=== PATIENT | female | born 1955 | race Caucasian/White ===

== ENCOUNTER 2018-02-07 15:58 | Emergency (ER) | payer OTHER, MEDICARE ==
[~2018-02-07] VITALS: Ht 162.6 cm; Wt 95.0 kg
[2018-02-07 16:09] VITALS: BP 219/93; PULSE 100; RESP 18; TEMP 98.7; O2SAT 96
[2018-02-07 17:45] VITALS: BP 167/106; PULSE 103; RESP 18
[2018-02-07] MEDS ORDERED: ATOR10TA15 PO (17:54)
[2018-02-07] MEDS ORDERED: HYDR12.57 PO (17:54)
[2018-02-07] MEDS ORDERED: IBUPROFEN 200 MG TAB PO ONE (18:00)
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
[2018-02-07 19:27] VITALS: BP 178/96
== END 2018-02-07 19:30 | disposition home or self-care (01) ==
LOC: PHED 15:58
DX: S80.01XA Contusion of right knee, initial encounter (principal); M54.2 Cervicalgia; E78.00 Pure hypercholesterolemia, unspecified; I10 Essential (primary) hypertension; V43.52XA Car driver injured in collision with other type car in traffic accident, initial encounter
CPT/HCPCS: 73564; 99283